=== PATIENT | female | born 1975 | race Caucasian/White ===

== ENCOUNTER 2020-05-24 17:01 | Outpatient (CLI) | payer OTHER, SELFPAY | END 2020-05-24 17:02 | disposition home or self-care (01) | LOC: ANHCOVIDVC 17:01 | DX: Z23 Encounter for immunization (principal) | CPT/HCPCS: 0001A; 91300 ==

== ENCOUNTER 2020-06-14 17:04 | Outpatient (CLI) | payer OTHER, SELFPAY | END 2020-06-14 17:05 | disposition home or self-care (01) | LOC: ANHCOVIDVC 17:05 | DX: Z23 Encounter for immunization (principal) | CPT/HCPCS: 0002A; 91300 ==

== ENCOUNTER 2023-02-19 19:45 | Emergency (ER) | payer OTHER, SELFPAY ==
[2023-02-19 19:52] VITALS: BP 132/72; PULSE 84; RESP 16; TEMP 36.6; O2SAT 97
--- NOTE | 2023-02-19 19:58 | ED.SKABFB ---
HPI - Skin/Abscess/Foreign Bdy General Chief complaint: Skin/Abscess/Foreign Body Stated complaint: rash Time Seen by Provider: 02/19/23 19:47 Source: patient Mode of arrival: ambulatory Limitations: no limitations History of Present Illness HPI narrative: 47-year-old female presents to [facility] with complaints of erythematous burning, painful rash to her left lateral chest wall since yesterday. Patient reports that she has had shingles twice in the past and her rash feels similar. Patient denies injury to the area. Patient denies fever, body aches, chills, nausea vomiting or diarrhea. Patient denies recent viral illness and denies increased stress. MD complaint: rash Onset (ago): day(s) (1) Location: chest (Left lateral chest wall) Quality: burning Exacerbating factors: none Context: none Associated symptoms: denies other symptoms Treatments prior to arrival: none Related Data Allergies Allergy/AdvReac Type Severity Reaction Status Date / Time No Known Allergies Allergy Mild Verified 02/19/23 19:46 Review of Systems Constitutional: Constitutional: Denies chills, Denies fatigue, Denies fever(s) and Denies weakness ENT: Denies vertigo and Denies dizziness Cardiovascular: Cardiovascular: Denies chest pain Respiratory: Respiratory: Denies cough, Denies dyspnea and Denies wheezing Gastrointestinal: Gastrointestinal: Denies diarrhea, Denies nausea and Denies vomiting Integumentary/Breasts: Skin/Breast: Denies pruritus, Denies erythema, Reports rash and Denies skin ulcer Neurologic: Denies dizziness, Denies syncope and Denies headache(s) [facility] Past Medical History Medical History Blood clot in eye (~2009) Breast nodule History of endometrial biopsy (~04/2010) Kidney stones Meningitis (~09/2003) Screening mammogram, encounter for Surgical History Surgical History History of 01/10/2003 10/10/2005 12/10/2008 History of total abdominal hysterectomy (07/27/11) menometrorrhagia, dysmenorrhea, fibroid uterus--benign Family History Family History Father Acute myocardial infarction Grandparent Heart disease maternal grandfather Other Heart disease maternal uncle Social History Social History Smoking status: Never smoker Second hand tobacco smoke exposure: No Alcohol intake: current Drinks per week: 5 Substance use: never Substance use type: does not use Living arrangements: other Additional living arrangements comments: Occupation/Education: occupation 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 There is no relevant family history pertinent to the presenting complaint. Exam Const: General: healthy appearing and no acute distress Nutritional Appearance: well nourished Orientation/consciousness: patient oriented x3 Limitations: no limitations HENMT: Head: normal to inspection Neck: Neck: normal visual inspection Resp: Effort & Inspection: normal respiratory effort and not labored Auscultation: clear to auscultation bilaterally, no crackles, no rales, no rhonchi and no wheezes Cardio: Rate: regular rate Rhythm: regular rhythm Heart sounds: no murmurs Skin: General skin exam: normal color Wounds: no wounds Other: Very small area of rash to left lateral chest wall; rash is erythematous;, nonvesicular. Three very small areas of rash noted. There are no open wounds, streaking erythema or signs of infection noted Neuro: General: patient oriented x3 Speech: normal speech Gait ex
== END 2023-02-19 20:08 | disposition home or self-care (01) ==
PROVIDERS: Emergency Provider Nurse Practitioner Family; PCP Nurse Practitioner Family
DX: B02.9 Zoster without complications (principal); Z86.2 Personal history of diseases of the blood and blood-forming organs and certain disorders involving the immune mechanism; Z86.61 Personal history of infections of the central nervous system; Z87.898 Personal history of other specified conditions
CPT/HCPCS: 99213; G0463